=== PATIENT | male | born 1970 | race Caucasian/White ===

== ENCOUNTER 2017-02-01 09:20 | Emergency (ER) | payer MEDICARE, MEDICAID ==
[~2017-02-01] VITALS: Ht 177.8 cm; Wt 72.5 kg
[~2017-02-01 09:20] MED LIST: OMEP20TA PO; OXYC1TAB36 PO; TRAZ50TA12 PO; VENTAER INH
[2017-02-01 09:24] VITALS: BP 136/87; PULSE 101; RESP 16; TEMP 98.2; O2SAT 97
[2017-02-01] MEDS ORDERED: ATOR10TA15 PO (09:31)
--- NOTE | 2017-02-01 09:57 | PD ---
HPI Chief Complaint: ENT Complaint Time Seen by Provider: 09:43 Travel History International Travel<30 days: No Contact w/Intl Traveler<30days: No Traveled to known affect area: No History of Present Illness HPI This patient complains of popping sensation in both ears. He's had runny nose and congestion. He says that he a couple of days ago had blurriness of his left eye but that has resolved. No eye drainage or eye pain. His vision today is normal PFSH Past Medical History Hx Anticoagulant Therapy: No Cancer: No Cardiovascular Problems: Yes (CHOL) High Cholesterol: Yes Diabetes: No Diverticulitis: Yes Endocrine: No Gastrointestinal Disorders: Yes (REFLUX) GERD: Yes Genitourinary: No Hepatitis: No Musculoskeletal: No Neurologic: No Psychiatric: No Reproductive: No Respiratory: No Thyroid Disease: No Past Surgical History Abdominal Surgery: No AICD: No Cardiac Surgery: No Ear Surgery: No Endocrine Surgery: No Eye Surgery: No Genitourinary Surgery: No Gynecologic Surgery: No Joint Replacement: No Oral Surgery: No Pacemaker: No Thoracic Surgery: No Other Surgery: Yes Social History Alcohol Use: Yes (OCCAS) Tobacco Use: Yes (1 PPD) Substance Use: No Allergies-Medications (Allergen,Severity, Reaction): Coded Allergies: Codeine (Verified Allergy, Intermediate, Nausea/Vomiting, 02/01/17) Vicodin (Unverified Adverse Reaction, Unknown, NAUSEA/VOMITING, 02/01/17) Reported Meds & Prescriptions Reported Meds & Active Scripts Active Reported Atorvastatin (Atorvastatin Calcium) 10 Mg Tab Unknown Dose PO HS Omeprazole 20 Mg Tab 20 Mg PO BID Review of Systems General / Constitutional: No: Fever HENT: No: Headaches Cardiovascular: No: Chest Pain or Discomfort Physical Exam Narrative NECK: Symmetrical appearance, midline trachea. No mass or crepitus. Thyroid without enlargement, tenderness, or mass. SKIN: Focused skin assessment reveals no rash or ulcers. Skin is warm and dry. Palpation shows no induration or nodules. RESPIRATORY: Respiratory effort unlabored, no retractions or use of accessory muscles. Breath sounds are clear and symmetric. TMs look normal bilaterally and throat clear Data Data Last Documented VS Vital Signs Date Time Temp Pulse Resp B/P Pulse Ox O2 Delivery O2 Flow Rate FiO2 02/01/17 09:24 98.2 101 16 136/87 97 MDM Medical Decision Making Medical Screen Exam Complete: Yes Emergency Medical Condition: Yes Medical Record Reviewed: Yes Differential Diagnosis Flu syndrome, otitis media, conjunctivitis Narrative Course I have reviewed the patient's electronic medical record. Presentation is most consistent with an acute viral syndrome Supportive care is discussed No indication for antibiotics Regarding his left eye blurriness that has resolved, I recommended ophthalmology follow-up for detailed eye examination Diagnosis Primary Impression: Viral labyrinthitis syndrome Qualified Code: H83.03 - Viral labyrinthitis syndrome, bilateral Additional Instructions: The patient was advised to follow up with their physician and return if they worsen. Follow-up with referral management liaison Med/Other Pt SpecificInfo: Other Disposition: DISCHARGE HOME Condition: Stable Zac Potts MD Feb 01, 2017 09:56
== END 2017-02-01 10:01 | disposition home or self-care (01) ==
LOC: PHEFT 09:20
DX: H83.03 Labyrinthitis, bilateral (principal); E78.00 Pure hypercholesterolemia, unspecified; K21.9 Gastro-esophageal reflux disease without esophagitis; F17.210 Nicotine dependence, cigarettes, uncomplicated
CPT/HCPCS: 99283

== ENCOUNTER 2018-02-11 13:31 | Emergency (ER) | payer MEDICARE, MEDICAID ==
[~2018-02-11] VITALS: Ht 177.8 cm; Wt 79.0 kg
[~2018-02-11 13:31] MED LIST changes: +ATOR10TA15 PO; -OMEP20TA PO; +OMEP20TA93 PO; -OXYC1TAB36 PO; -TRAZ50TA12 PO; -VENTAER INH
[2018-02-11 13:36] VITALS: BP 144/81; PULSE 79; RESP 16; TEMP 98.8; O2SAT 97
[2018-02-11] MEDS ORDERED: HTN MED (13:47)
[2018-02-11] MEDS ORDERED: LOVA10TA PO (13:47)
[2018-02-11] MEDS ORDERED: TRAZ100T10 PO (13:47)
--- NOTE | 2018-02-11 14:01 | PD ---
HPI Chief Complaint: Dizziness Time Seen by Provider: 13:45 Travel History International Travel<30 days: No Contact w/Intl Traveler<30days: No Traveled to known affect area: No History of Present Illness HPI This 47-year-old male says been feeling lightheaded for the past week and a half. Symptoms were at first intermittent but they seem to be getting more frequent and persistent. He says that he felt like is most of the day yesterday. He was okay earlier today but then recently the symptoms started again. He does not describe vertigo or just equilibrium. He says he feels like is going to pass out. He has been on blood pressure medication for a year. He does not know what the blood pressure medicine has. He also takes Flonase Claritin and omeprazole and trazodone. He has not been having chest pain. He has not had syncope. There is been no chest pain. PFSH Past Medical History Hx Anticoagulant Therapy: No Cancer: No Cardiovascular Problems: Yes (CHOL) High Cholesterol: Yes Diabetes: No Diverticulitis: Yes Endocrine: No Gastrointestinal Disorders: Yes (REFLUX) GERD: Yes Genitourinary: No Hepatitis: No Musculoskeletal: No Neurologic: No Psychiatric: No Reproductive: No Respiratory: No Thyroid Disease: No Past Surgical History Abdominal Surgery: Yes (FOR DIVERTICULITIS) AICD: No Cardiac Surgery: No Ear Surgery: No Endocrine Surgery: No Eye Surgery: No Genitourinary Surgery: No Gynecologic Surgery: No Joint Replacement: No Oral Surgery: No Pacemaker: No Thoracic Surgery: No Other Surgery: Yes Social History Alcohol Use: Yes (OCCAS) Tobacco Use: Yes (1 PPD) Substance Use: No Allergies-Medications (Allergen,Severity, Reaction): Coded Allergies: codeine (Unverified Allergy, Intermediate, Nausea/Vomiting, 02/11/18) acetaminophen (Unverified Adverse Reaction, Unknown, PT DENIES, 02/11/18) hydrocodone (Unverified Adverse Reaction, Unknown, NAUSEA/VOMITING, ) Reported Meds & Prescriptions Reported Meds & Active Scripts Active Reported [Htn Med] Lovastatin 10 Mg Tab Unknown Dose PO DAILY Trazodone (Trazodone HCl) 100 Mg Tablet 100 Mg PO HS Omeprazole 20 Mg Tab 20 Mg PO BID Review of Systems General / Constitutional: No: Fever, Chills Eyes: No: Diploplia, Blurred Vision HENT: Positive: Lightheadedness, No: Headaches, Vertigo Cardiovascular: No: Chest Pain or Discomfort, Palpitations Respiratory: No: Cough, Shortness of Breath Gastrointestinal: No: Nausea, Vomiting Genitourinary: No: Urgency, Frequency Musculoskeletal: No: Myalgias Skin: No Rash, No Itching Endocrine: No: Heat Intolerance, Cold Intolerance Hematologic/Lymphatic: No: Easy Bruising Physical Exam Narrative GENERAL: Well-developed male SKIN: Focused skin assessment warm/dry. HEAD: Atraumatic. Normocephalic. EYES: Pupils equal and round. No scleral icterus. No injection or drainage. ENT: No nasal bleeding or discharge. Mucous membranes pink and moist. NECK: Trachea midline. No JVD. CARDIOVASCULAR: Regular rate and rhythm. No murmur appreciated. RESPIRATORY: No accessory muscle use. Clear to auscultation. Breath sounds equal bilaterally. GASTROINTESTINAL: Abdomen soft, non-tender, nondistended. Hepatic and splenic margins not palpable. MUSCULOSKELETAL: No obvious deformities. No clubbing. No cyanosis. No edema. NEUROLOGICAL: Awake and alert. No obvious cranial nerve deficits. Motor grossly within normal limits. Normal speech. PSYCHIATRIC: Appropriate mood and affect; insight and judgment normal. Data Data Last Documented VS Vital Signs Date Time Temp Pulse Resp B/P (MAP) Pulse Ox O2 Delivery O2 Flow Rate FiO2 02/11/18 14:18 72 20 133/81 (98) 75 20 142/84 (103) 78 20 170/89 (116) 02/11/18 13:36 98.8 97 Orders Orders Electrocardiogram (02/11/18 13:56) Complete Blood Count With Diff (02/11/18 13:56) Comprehensive Metabolic Panel (02/11/18 13:56) Magnesium (Mg) (02/11/18 13:56) Orthostatic Vital Signs (02/11/18 13:56) Troponin I (02/11/18 13:56) Labs Laboratory Tests Test 02/11/18 14:10 White Blood Count 12.1 TH/MM3 Red Blood Count 5.32 MIL/MM3 Hemoglobin 16.3 GM/DL Hematocrit 47.2 % Mean Corpuscular Volume 88.6 FL Mean Corpuscular Hemoglobin 30.5 PG Mean Corpuscular Hemoglobin Concent 34.5 % Red Cell Distribution Width 12.7 % Platelet Count 237 TH/MM3 Mean Platelet Volume 8.6 FL Neutrophils (%) (Auto) 54.4 % Lymphocytes (%) (Auto) 33.2 % Monocytes (%) (Auto) 5.3 % Eosinophils (%) (Auto) 5.8 % Basophils (%) (Auto) 1.3 % Neutrophils # (Auto) 6.6 TH/MM3 Lymphocytes # (Auto) 4.0 TH/MM3 Monocytes # (Auto) 0.6 TH/MM3 Eosinophils # (Auto) 0.7 TH/MM3 Basophils # (Auto) 0.2 TH/MM3 CBC Comment DIFF FINAL Differential Comment Blood Urea Nitrogen 13 MG/DL Creatinine 0.77 MG/DL Random Glucose 95 MG/DL Total Protein 8.0 GM/DL Albumin 3.9 GM/DL Calcium Level 8.9 MG/DL Magnesium Level 1.9 MG/DL Alkaline Phosphatase 167 U/L Aspartate Amino Transf (AST/SGOT) 23 U/L Alanine Aminotransferase (ALT/SGPT) 37 U/L Total Bilirubin 0.3 MG/DL Sodium Level 137 MEQ/L Potassium Level 3.8 MEQ/L Chloride Level 106 MEQ/L Carbon Dioxide Level 26.8 MEQ/L Anion Gap 4 MEQ/L Estimat Glomerular Filtration Rate 107 ML/MIN Troponin I LESS THAN 0.02 NG/ML MDM Medical Decision Making Medical Screen Exam Complete: Yes Emergency Medical Condition: Yes Medical Record Reviewed: Yes Differential Diagnosis Differential includes dehydration, orthostatic hypotension, adverse medication reaction Narrative Course Globin is 16. His electrolytes are normal. Blood sugar is normal. Orthostatic vital signs were checked and on standing his blood pressure actually went up a little bit he did complain of feeling lightheaded though his heart rate only went from 72-78. Patient is stable for discharge. There is no evidence of dehydration or orthostatic hypotension. Diagnosis Primary Impression: Episodic lightheadedness Additional Instructions: Drink plenty of fluids Disposition: DISCHARGE HOME Condition: Stable Rafael Connor MD Feb 11, 2018 14:01
[2018-02-11 14:17] LABS: AUTOMATED NEUTROPHIL # 6.6 TH/MM3 (1.8-7.7); BASOPHIL # 0.2 TH/MM3 (0-0.2); BASOPHIL % 1.3 % (0.0-2.0); EOSINOPHIL # 0.7 TH/MM3 (0-0.4); EOSINOPHIL % 5.8 % (0.0-4.0); HEMATOCRIT 47.2 % (39.0-51.0); HEMOGLOBIN 16.3 GM/DL (13.0-17.0); LYMPH % 33.2 % (9.0-44.0); MEAN CELL VOLUME 88.6 FL (80.0-100.0); MEAN CORPUSCULAR HEMOGLOBIN 30.5 PG (27.0-34.0); MEAN CORPUSCULAR HGB CONC 34.5 % (32.0-36.0); MEAN PLATELET VOLUME 8.6 FL (7.0-11.0); MONO % 5.3 % (0.0-8.0); MONOCYTE # 0.6 TH/MM3 (0-0.9); NEUT % 54.4 % (16.0-70.0); PLATELET COUNT 237 TH/MM3 (150-450); RED BLOOD COUNT 5.32 MIL/MM3 (4.50-5.90); RED CELL DISTRIBUTION WIDTH 12.7 % (11.6-17.2); WHITE BLOOD COUNT 12.1 TH/MM3 (4.0-11.0)
[2018-02-11 14:18] VITALS: BP_SYST 133; BP_SYST 142; BP_SYST 170; BP_DIAS 81; BP_DIAS 84; BP_DIAS 89; RESP 20
[2018-02-11 14:30] LABS: CHLORIDE 106 MEQ/L (98-107); SODIUM (NA) 137 MEQ/L (136-145)
[2018-02-11 14:33] LABS: CALCIUM 8.9 MG/DL (8.5-10.1)
[2018-02-11 14:34] LABS: ALBUMIN 3.9 GM/DL (3.4-5.0); BICARBONATE 26.8 MEQ/L (21.0-32.0); BLOOD UREA NITROGEN 13 MG/DL (7-18); GLUCOSE,RANDOM 95 MG/DL (74-106); MAGNESIUM 1.9 MG/DL (1.5-2.5)
[2018-02-11 14:37] LABS: ALT (GPT) 37 U/L (12-78); AST (GOT) 23 U/L (15-37); CREATININE 0.77 MG/DL (0.60-1.30); GLOMERULAR FILTRATION RATE 107 ML/MIN (>89)
[2018-02-11 14:39] LABS: TOTAL BILIRUBIN ADULT 0.3 MG/DL (0.2-1.0)
[2018-02-11 14:40] LABS: ALKALINE PHOSPHATASE 167 U/L (45-117)
[2018-02-11 14:42] LABS: TROPONIN I LESS THAN 0.02 NG/ML (0.02-0.05)
--- NOTE | 2018-02-12 09:36 | EKG ---
Date Performed: 02/11/2018 Time Performed: 14:05:33 PTAGE: 47 years EKG: Sinus rhythm NORMAL ECG NO PREVIOUS TRACING DOCTOR: Marcos Saunders Interpretating Date/Time 02/12/2018 09:34:52
== END 2018-02-11 15:16 | disposition home or self-care (01) ==
LOC: PHED 13:31
DX: R42 Dizziness and giddiness (principal); F17.200 Nicotine dependence, unspecified, uncomplicated; E78.00 Pure hypercholesterolemia, unspecified; K21.9 Gastro-esophageal reflux disease without esophagitis; Z79.899 Other long term (current) drug therapy
CPT/HCPCS: 80053; 83735; 84484; 85025; 93005; 99284

== ENCOUNTER 2018-02-21 10:59 | Emergency (ER) | payer MEDICARE, MEDICAID ==
[~2018-02-21] VITALS: Ht 177.8 cm; Wt 78.3 kg
[~2018-02-21 10:59] MED LIST changes: -ATOR10TA15 PO; +HTN MED; +LOVA10TA PO; +TRAZ100T10 PO
[2018-02-21 11:02] VITALS: BP 123/68; PULSE 115; RESP 16; TEMP 98.4; O2SAT 97
[2018-02-21] MEDS ORDERED: VITA100064 PO (11:11)
[2018-02-21] MEDS ORDERED: LORA-400 PO (11:11)
[2018-02-21] MEDS ORDERED: FLUT1SPR5 EACH NARE (11:11)
[2018-02-21] MEDS ORDERED: ASPI-516 CHEW (11:11)
[2018-02-21] MEDS ORDERED: LISI-519 PO (11:11)
[2018-02-21] MEDS ORDERED: MECL12.574 PO (11:11)
--- NOTE | 2018-02-21 11:38 | PD ---
HPI Chief Complaint: Dizziness Time Seen by Provider: 11:11 Travel History International Travel<30 days: No Contact w/Intl Traveler<30days: No Traveled to known affect area: No History of Present Illness HPI 47yo M with PMH of HTN, HLD presents to the ED with c/o persistent dizziness for 3 weeks. Pt was evaluated in the ED 02/11/18 and had negative orthostatic and unremarkable lab work. Pt said he followed up with urgent care and was started on meclizine 3 days ago. Said he has been taking it 3 times a day with no improvement. Pt describes the dizziness as more lightheaded that is worst with head movement and bending down. Said he has mild tinnitus in bilateral ears. Pt said it is not spinning of the room and not associated with nausea or vomiting. Denies any new changes in vision, focal weakness, focal numbness, chest pain, sob, abdominal pain. Pt feels imbalance but gait is normal. Said he was also told by family that sometimes he speaks very fast and it is intermittent. Said he feels like he is thinking about saying something and cant get the words out but it comes out fast. Denies history of CVA. PFSH Past Medical History Hx Anticoagulant Therapy: No Cancer: No Cardiovascular Problems: Yes (CHOL) High Cholesterol: Yes Diabetes: No Diverticulitis: Yes Endocrine: No Gastrointestinal Disorders: Yes (REFLUX) GERD: Yes Genitourinary: No Hepatitis: No Musculoskeletal: No Neurologic: No Psychiatric: No Reproductive: No Respiratory: No Thyroid Disease: No Past Surgical History Abdominal Surgery: Yes (FOR DIVERTICULITIS) AICD: No Cardiac Surgery: No Ear Surgery: No Endocrine Surgery: No Eye Surgery: No Genitourinary Surgery: No Gynecologic Surgery: No Joint Replacement: No Oral Surgery: No Pacemaker: No Thoracic Surgery: No Other Surgery: Yes Social History Alcohol Use: Yes (OCCAS) Tobacco Use: Yes (1 PPD) Substance Use: No Allergies-Medications (Allergen,Severity, Reaction): Coded Allergies: codeine (Unverified Allergy, Intermediate, Nausea/Vomiting, 02/21/18) acetaminophen (Unverified Adverse Reaction, Unknown, PT DENIES, 02/21/18) hydrocodone (Unverified Adverse Reaction, Unknown, NAUSEA/VOMITING, 02/21/18 ) Reported Meds & Prescriptions Reported Meds & Active Scripts Active Reported Flonase Nasal [place] (Fluticasone Nasal [place]) 50 Mcg/Act [place] 50 Mcg EACH NARE BID Meclizine (Meclizine HCl) 12.5 Mg Tab 12.5 Mg PO DIRECTED PRN Claritin-D 24 HR (Loratadine-Pseudoephedrine 24 HR) 10-240 Mg Tab 1 Tab PO DAILY Vitamin D3 (Cholecalciferol) 1,000 Unit Tab 1,000 Units PO DAILY Lisinopril 5 Mg Tab 5 Mg PO DAILY Aspirin 81 Mg Chew 81 Mg CHEW DAILY Lovastatin 10 Mg Tab 10 Mg PO DAILY Trazodone (Trazodone HCl) 100 Mg Tablet 100 Mg PO HS Omeprazole 20 Mg Tab 20 Mg PO BID Review of Systems Except as stated in HPI: all other systems reviewed are Neg Physical Exam Narrative GENERAL: 47yo M not in distress. SKIN: Focused skin assessment warm/dry. HEAD: Atraumatic. Normocephalic. EYES: Pupils equal and round at 4mm bilaterally. EOMI. No nystagmus. ENT: No nasal bleeding or discharge. Mucous membranes pink and moist. NECK: Trachea midline. No JVD. CARDIOVASCULAR: Regular rate and rhythm. No murmur appreciated. RESPIRATORY: No accessory muscle use. Clear to auscultation. Breath sounds equal bilaterally. GASTROINTESTINAL: Abdomen soft, non-tender, nondistended. MUSCULOSKELETAL: No obvious deformities. No clubbing. No cyanosis. No edema. NEUROLOGICAL: Awake and alert. No obvious cranial nerve deficits. Motor grossly within normal limits in all extremities. Sensation intact. Normal finger to nose test. Normal gait. Normal speech. PSYCHIATRIC: Appropriate mood and affect; insight and judgment normal. Data Data Last Documented VS Vital Signs Date Time Temp Pulse Resp B/P (MAP) Pulse Ox O2 Delivery O2 Flow Rate FiO2 02/21/18 14:11 90 18 124/87 (99) 98 Room Air 02/21/18 11:02 98.4 Orders Orders Complete Blood Count With Diff (02/21/18 11:29) Basic Metabolic Panel (Bmp) (02/21/18 11:29) Prothrombin Time / Inr (Pt) (02/21/18 11:29) Act Partial Throm Time (Ptt) (02/21/18 11:29) Mra Brain W/O Contrast (Cow) (02/21/18 ) Mri Brain W/O Contrast (02/21/18 ) Electrocardiogram (02/21/18 ) Orthostatic Vital Signs (02/21/18 11:47) Sodium Chlor 0.9% 1000 Ml Inj (Ns 1000 M (02/21/18 12:45) Lorazepam Inj (Ativan Inj) (02/21/18 12:45) Labs Laboratory Tests Test 02/21/18 11:40 White Blood Count 12.0 TH/MM3 Red Blood Count 5.41 MIL/MM3 Hemoglobin 16.0 GM/DL Hematocrit 47.8 % Mean Corpuscular Volume 88.3 FL Mean Corpuscular Hemoglobin 29.7 PG Mean Corpuscular Hemoglobin Concent 33.6 % Red Cell Distribution Width 12.1 % Platelet Count 241 TH/MM3 Mean Platelet Volume 8.4 FL Neutrophils (%) (Auto) 65.7 % Lymphocytes (%) (Auto) 24.5 % Monocytes (%) (Auto) 3.3 % Eosinophils (%) (Auto) 4.4 % Basophils (%) (Auto) 2.1 % Neutrophils # (Auto) 7.9 TH/MM3 Lymphocytes # (Auto) 2.9 TH/MM3 Monocytes # (Auto) 0.4 TH/MM3 Eosinophils # (Auto) 0.5 TH/MM3 Basophils # (Auto) 0.3 TH/MM3 CBC Comment DIFF FINAL Differential Comment Prothrombin Time 10.5 SEC Prothromb Time International Ratio 1.0 RATIO Activated Partial Thromboplast Time 26.3 SEC Blood Urea Nitrogen 10 MG/DL Creatinine 0.91 MG/DL Random Glucose 108 MG/DL Calcium Level 9.2 MG/DL Sodium Level 137 MEQ/L Potassium Level 3.8 MEQ/L Chloride Level 103 MEQ/L Carbon Dioxide Level 27.4 MEQ/L Anion Gap 7 MEQ/L Estimat Glomerular Filtration Rate 89 ML/MIN [facility] Medical Decision Making Medical Screen Exam Complete: Yes Emergency Medical Condition: Yes Interpretation(s) EKG: Sinus tachycardia at 107bpm. Normal axis. No ST segment elevation or depression. Differential Diagnosis Benign peripheral vertigo vs. vestibular neuritis vs. labrynthitis vs. posterior stroke vs. conversion disorder Narrative Course 47yo M with persistent dizziness for 3 weeks. Labs reviewed, WBC 12. BMP unremarkable. MRI brain negative for an acute process. MRA brain negative. Pt was initially mildly tachycardic so NS IVF given and HR is now 90bpm. Pt said dizziness is not bad if he does not move his head. Still has dizziness but no nausea. Feel this is peripheral and will have pt follow up with ENT. Diagnosis Primary Impression: Dizziness Referrals: Chato Ceron MD call for appointment Patient Instructions: General Instructions Departure Forms: Tests/Procedures Additional Instructions: Please follow up with ENT as soon as you can. Return to the ED if symptoms worsen. Med/Other Pt SpecificInfo: No Change to Meds Disposition: 01 DISCHARGE HOME Condition: Stable Dorothy Jackson DO February 21, 2018 11:38
[2018-02-21 11:47] LABS: AUTOMATED NEUTROPHIL # 7.9 TH/MM3 (1.8-7.7); BASOPHIL # 0.3 TH/MM3 (0-0.2); BASOPHIL % 2.1 % (0.0-2.0); EOSINOPHIL # 0.5 TH/MM3 (0-0.4); EOSINOPHIL % 4.4 % (0.0-4.0); HEMATOCRIT 47.8 % (39.0-51.0); LYMPH % 24.5 % (9.0-44.0); LYMPHOCYTE # 2.9 TH/MM3 (1.0-4.8); MEAN CELL VOLUME 88.3 FL (80.0-100.0); MEAN CORPUSCULAR HEMOGLOBIN 29.7 PG (27.0-34.0); MEAN CORPUSCULAR HGB CONC 33.6 % (32.0-36.0); MEAN PLATELET VOLUME 8.4 FL (7.0-11.0); MONO % 3.3 % (0.0-8.0); MONOCYTE # 0.4 TH/MM3 (0-0.9); NEUT % 65.7 % (16.0-70.0); PLATELET COUNT 241 TH/MM3 (150-450); RED BLOOD COUNT 5.41 MIL/MM3 (4.50-5.90); RED CELL DISTRIBUTION WIDTH 12.1 % (11.6-17.2)
[2018-02-21 12:05] VITALS: BP_SYST 107; BP_SYST 115; BP_SYST 120; BP_DIAS 65; BP_DIAS 80; BP_DIAS 84; RESP 20
[2018-02-21 12:06] LABS: BICARBONATE 27.4 MEQ/L (21.0-32.0); CALCIUM 9.2 MG/DL (8.5-10.1)
[2018-02-21 12:07] LABS: PROTHROMBIN TIME - PATIENT 10.5 SEC (9.8-11.6)
[2018-02-21 12:10] LABS: CREATININE 0.91 MG/DL (0.60-1.30)
[2018-02-21] MEDS ORDERED: LORazepam 2 MG/ML VIAL IV PUSH ONE (12:45)
[2018-02-21] MEDS ORDERED: SODIUM CHLOR 0.9% 1000 ML INJ 1,000 ML IV ONE (12:45)
--- NOTE | 2018-02-21 13:25 | RADRPT ---
EXAM DATE/TIME: 02/21/2018 13:10 [facility] COMPARISON: No previous studies available for comparison. INDICATIONS : Dizziness. Light headed. MEDICAL HISTORY : Hypertension. Hypercholesterolemia. SURGICAL HISTORY : Diverticulitis sx. ENCOUNTER: Initial ACUITY: 3 weeks PAIN SCORE: 0/10 LOCATION: cranial TECHNIQUE: Multiplanar, multisequence MRI of the brain was performed without contrast. FINDINGS: CEREBRUM: The ventricles are normal for age. No evidence of midline shift, mass lesion, hemorrhage or acute in farction. No extraaxial fluid collections are seen. The pituitary gland and suprasellar cistern are normal in configuration. WHITE MATTER: No significant signal abnormalities are seen in the white matter. POSTERIOR FOSSA: The cerebellum and brainstem are intact. The 4th ventricle is midline. The cerebellopontine angle is unremarkable. The cerebellar tonsils are normal in position. DIFFUSION IMAGING: No focal areas of restricted diffusion are seen. No evidence of acute infarction. EXTRACRANIAL: The visualized portions of the orbits are unremarkable. Minimal left maxillary sinus disease. CONCLUSION: Negative for an acute process. Minimal left maxillary sinus disease Wu Lyons MD FACR on February 21, 2018 at 13:22 Board Certified Radiologist. This report was verified electronically.
--- NOTE | 2018-02-21 13:25 | RADRPT ---
EXAM DATE/TIME: 02/21/2018 13:10 [facility] COMPARISON: No previous studies available for comparison. INDICATIONS : Dizziness. Light headed. MEDICAL HISTORY : Hypertension. Hypercholesterolemia. SURGICAL HISTORY : Diverticulitis sx. ENCOUNTER: Initial ACUITY: 3 weeks PAIN SCORE: 0/10 LOCATION: cranial Please note a normal MRA of the brain does not entirely exclude the possibility of a small aneurysm, nor the possibility of distal intracranial vessel disease. TECHNIQUE: 3D time of flight MRA was performed. Source images, multiplanar STS MIP, and 3D volume MIP reconstru ctions were reviewed. FINDINGS: There is excellent visualization of the major intracranial arteries out to the second-order branch ve ssels. There is no evidence for aneurysm, vessel truncation or stenosis, and no evidence for vascula r malformation. CONCLUSION: Negative MRA of the brain. Wu Lyons MD FACR on February 21, 2018 at 13:23 Board Certified Radiologist. This report was verified electronically.
[2018-02-21 14:11] VITALS: BP 124/87; PULSE 90; RESP 18; O2SAT 98
--- NOTE | 2018-02-21 22:54 | EKG ---
Date Performed: 02/21/2018 Time Performed: 11:45:08 PTAGE: 47 years EKG: SINUS TACHYCARDIA NONSPECIFIC T-WAVE ABNORMALITY When compared to previous tracing, sinus r ate has increased. ABNORMAL RHYTHM ECG PREVIOUS TRACING : 02/11/2018 14.05 DOCTOR: Mikey Perez Interpretating Date/Time 02/21/2018 17:47:33
== END 2018-02-21 14:42 | disposition home or self-care (01) ==
LOC: PHED 10:59
DX: R42 Dizziness and giddiness (principal); R00.0 Tachycardia, unspecified; R94.31 Abnormal electrocardiogram [ECG] [EKG]; J32.0 Chronic maxillary sinusitis; I10 Essential (primary) hypertension; E78.5 Hyperlipidemia, unspecified; E78.00 Pure hypercholesterolemia, unspecified; K21.9 Gastro-esophageal reflux disease without esophagitis; Z87.19 Personal history of other diseases of the digestive system
CPT/HCPCS: 70544; 70551; 80048; 85025; 85610; 85730; 93005; 96361; 96374; 99285; J2060; J7030